=== PATIENT | female | born 1950 | race Caucasian/White ===

== ENCOUNTER 2019-03-27 18:58 | Observation (INO) | payer BC ==
[2019-03-27 21:12] LABS: ADD MAN DIFF? NO
[2019-03-27 21:17] LABS: WHITE BLOOD COUNT 7.3 10^3/ul (4.8-10.8)
[2019-03-27 21:17] LABS: BASOPHIL # 0.1 10^3/ul (0.0-0.1); BASOPHILS % 0.7 % (0.0-2.0); EOSINOPHILS # 0.2 10^3/ul (0.0-0.5); EOSINOPHILS % 2.2 % (0.0-7.0); HEMOGLOBIN 13.2 g/dl (12.0-16.0); LYMPHOCYTES # 2.3 10^3/ul (0.8-2.9); MEAN CORPUSCULAR HEMOGLOBIN 28.7 pg (29.0-33.0); MEAN CORPUSCULAR HGB CONC 32.2 g/dl (32.0-37.0); MEAN CORPUSCULAR VOLUME 89.1 fl (82.0-101.0); MEAN PLATELET VOLUME 10.1 fl (7.4-10.4); MONOCYTE # 0.4 10^3/ul (0.3-0.9); MONOCYTES % 5.6 % (0.0-11.0); NEUTROPHIL # 4.4 10^3/ul (1.6-7.5); NEUTROPHILS % 60.4 % (39.0-77.0); PLATELET COUNT 306 10^3/UL (140-415)
[2019-03-27] MEDS: NITROGLYCERIN 2% 1 GM OINT PKT TD (21:53)
[2019-03-27] MEDS: ASPIRIN 81 MG TAB PO (21:54)
[2019-03-27 22:24] LABS: ANION GAP 8 (5-13); BLOOD UREA NITROGEN 18 mg/dl (7-20); CARBON DIOXIDE 29 mmol/L (21-31); CHLORIDE 103 mmol/L (97-110); CREATININE 0.58 mg/dl (0.44-1.00); Estimated GFR > 60 mL/min (>60); GLUCOSE 123 mg/dl (70-220); POTASSIUM 4.7 mmol/L (3.5-5.1); SODIUM 140 mmol/L (135-144)
[2019-03-27 22:37] LABS: B-TYPE NATRIURETIC PEPTIDE 26 PG/ML (0-125); TROPONIN-I < 0.012 ng/ml (0.000-0.120)
[2019-03-27] MEDS ORDERED: NACL 0.9% 3 ML SYG IV (23:00)
[2019-03-27] MEDS ORDERED: DOCUSATE SODIUM 100 MG CAP PO (23:00)
[2019-03-27] MEDS ORDERED: morphine 2 MG INJ IV (23:00)
[2019-03-27] MEDS ORDERED: ACETAMINOPHEN 325 MG TAB PO (23:00)
[2019-03-27] MEDS ORDERED: ONDANSETRON 4 MG INJ IV (23:00)
[2019-03-27] MEDS ORDERED: BISACODYL (EC) 5 MG TAB PO (23:00)
[2019-03-27] MEDS ORDERED: HYDROCODONE/APAP (7.5/325) TAB PO (23:00)
[2019-03-27] MEDS ORDERED: NITROGLYCERIN (SL) 0.4 MG TAB SL (23:00)
[2019-03-28] MEDS ORDERED: LORAZEPAM 0.5 MG TAB PO (01:30)
[2019-03-28 03:29] LABS: ADD MAN DIFF? NO
[2019-03-28 03:50] LABS: CREATINE KINASE 34 IU/L (23-200)
[2019-03-28 03:57] LABS: WHITE BLOOD COUNT 7.2 10^3/ul (4.8-10.8)
[2019-03-28 03:57] LABS: BASOPHILS % 0.6 % (0.0-2.0); EOSINOPHILS # 0.2 10^3/ul (0.0-0.5); EOSINOPHILS % 2.4 % (0.0-7.0); HEMATOCRIT 38.7 % (37.0-47.0); HEMOGLOBIN 12.6 g/dl (12.0-16.0); LYMPHOCYTES # 2.7 10^3/ul (0.8-2.9); MEAN CORPUSCULAR HEMOGLOBIN 29.2 pg (29.0-33.0); MEAN CORPUSCULAR HGB CONC 32.6 g/dl (32.0-37.0); MEAN CORPUSCULAR VOLUME 89.6 fl (82.0-101.0); MONOCYTE # 0.5 10^3/ul (0.3-0.9); MONOCYTES % 7.3 % (0.0-11.0); NEUTROPHIL # 3.7 10^3/ul (1.6-7.5); NEUTROPHILS % 51.6 % (39.0-77.0); PLATELET COUNT 294 10^3/UL (140-415); RED BLOOD COUNT 4.32 10^6/ul (4.20-5.40); RED CELL DISTRIBUTION WIDTH 13.9 % (11.5-14.5)
[2019-03-28 04:00] LABS: CK INDEX 1.4; CK-MB 0.46 ng/ml (0.0-2.4)
[2019-03-28 04:01] LABS: ALANINE AMINOTRANSFERASE 18 IU/L (13-69); ALBUMIN 3.8 g/dl (3.3-4.9); ALBUMIN/GLOBULIN RATIO 1.26; ALKALINE PHOSPHATASE 89 IU/L (42-121); ANION GAP 9 (5-13); ASPARTATE AMINO TRANSFERASE 19 IU/L (15-46); BILIRUBIN,INDIRECT 0.4 mg/dl (0-1.1); BILIRUBIN,TOTAL 0.4 mg/dl (0.2-1.3); BLOOD UREA NITROGEN 16 mg/dl (7-20); CALCIUM 9.3 mg/dl (8.4-10.2); CARBON DIOXIDE 30 mmol/L (21-31); CHLORIDE 108 mmol/L (97-110); CHOL/HDL RATIO 5.5 RATIO; CHOLESTEROL 194 mg/dl (100-200); CREATININE 0.59 mg/dl (0.44-1.00); Estimated GFR > 60 mL/min (>60); GLUCOSE 103 mg/dl (70-220); HDL CHOLESTEROL 35 mg/dl (35-98); LDL CHOLESTEROL,CALCULATED 120 mg/dl; MAGNESIUM 2.1 mg/dl (1.7-2.5); POTASSIUM 4.5 mmol/L (3.5-5.1); SODIUM 147 mmol/L (135-144); TOTAL PROTEIN 6.8 g/dl (6.1-8.1); TRIGLYCERIDES 194 mg/dl (0-149)
[2019-03-28 04:03] LABS: TROPONIN-I < 0.012 ng/ml (0.000-0.120)
[2019-03-28] MEDS: LANSOPRAZOLE 30 MG CAP PO (05:51)
[2019-03-28] MEDS: DEXTROSE 5%-0.45% NACL 500 ML BAG IV (05:52)
[2019-03-28] MEDS: ASPIRIN (EC) 81 MG TAB PO (08:27)
[2019-03-28] MEDS: GABAPENTIN 300 MG CAP PO (08:28)
[2019-03-28 08:57] LABS: CREATINE KINASE 40 IU/L (23-200)
[2019-03-28] MEDS ORDERED: hydrALAzine 20 MG INJ IV (09:00)
[2019-03-28] MEDS: SUCRALFATE (100 MG/ML) 10ML CUP PO ×2 (09:00→12:38)
[2019-03-28] MEDS ORDERED: LABETALOL HCL 20MG INJ IV (09:00)
[2019-03-28 09:11] LABS: CK INDEX 1.1; CK-MB 0.45 ng/ml (0.0-2.4); TROPONIN-I < 0.012 ng/ml (0.000-0.120)
[2019-03-28 11:30] LABS: LIPASE 25 U/L (23-300)
[2019-03-28] MEDS: METOPROLOL (XL) 25 MG TAB PO (14:26)
[2019-03-28] MEDS ORDERED: ATORVASTATIN 40 MG TAB PO (21:00)
== END 2019-03-28 15:08 | disposition home or self-care (01) ==
LOC: TEL 22:56 → E/R 18:58 → TEL 03-28 00:10
PROVIDERS: Family Medicine
DX: R07.9 Chest pain, unspecified (principal); R00.2 Palpitations; I47.2 Ventricular tachycardia; M79.7 Fibromyalgia; R10.13 Epigastric pain; E11.9 Type 2 diabetes mellitus without complications; E78.5 Hyperlipidemia, unspecified; K21.9 Gastro-esophageal reflux disease without esophagitis; E66.9 Obesity, unspecified; Z68.33 Body mass index [BMI] 33.0-33.9, adult; Z79.82 Long term (current) use of aspirin; Z79.84 Long term (current) use of oral hypoglycemic drugs
CPT/HCPCS: 36415; 71045; 80048; 80053; 80061; 82550; 82553; 83036; 83690; 83735; 83880; 84443; 84484; 85025; 93005; 93306; 99217; 99285-25; G0378